=== PATIENT | female | born 1970 | race Hispanic/Latino ===

== ENCOUNTER 2019-01-01 16:00 | Outpatient (RCR) | payer OTHER ==
[~2019-01-01 16:00] MED LIST: AZOR 5-40 MG T1 EACH PO
== END 2019-01-04 ==
LOC: PT 16:00
PROVIDERS: ATTEND Specialist
DX: S13.4XXA Sprain of ligaments of cervical spine, initial encounter (principal); S33.5XXA Sprain of ligaments of lumbar spine, initial encounter; M54.42 Lumbago with sciatica, left side; M62.81 Muscle weakness (generalized)

== ENCOUNTER 2019-01-12 17:00 | Outpatient (RCR) | payer OTHER | END 2019-02-03 | LOC: PT 17:00 | PROVIDERS: ATTEND Specialist | DX: S33.5XXA Sprain of ligaments of lumbar spine, initial encounter (principal); S13.4XXA Sprain of ligaments of cervical spine, initial encounter; M54.42 Lumbago with sciatica, left side; M54.2 Cervicalgia; M62.81 Muscle weakness (generalized) | CPT/HCPCS: 97139 ==

== ENCOUNTER → 2021-01-27 | Outpatient (CLI) | payer OTHER | LOC: RAD 10:15 | PROVIDERS: ATTEND Internal Medicine | DX: J20.9 Acute bronchitis, unspecified (principal) | CPT/HCPCS: 71046 ==